=== PATIENT | female | born 1995 | race Caucasian/White ===

== ENCOUNTER 2023-02-17 09:56 | Outpatient (AMB) | payer OTHER, SELFPAY ==
[2023-02-17 09:59] VITALS: BP 116/64; PULSE 78; O2SAT 96; BMI 33.7
--- NOTE | 2023-02-17 09:59 | MHC.PC.OV ---
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 Will get pap again next yr. 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 SurgHx: None FHx: Mom: Arthritis. Dad: HLD, Moles. Brother: Healthy. pGF: DM. SocHx: Nonsmoker. EtOH 1-2 dr a week. No drugs. [facility] Medical History (Updated 02/17/23 @ 11:00 by Jericho Garcia) Anxiety Family History (Updated 02/17/23 @ 10:07 by Pam Barraza CMA) Paternal Grandfather Diabetes History of open heart surgery Father Mental health disorder Social History (Updated 02/17/23 @ 10:10 by Pam Barraza CMA) Household Members: Friend(s) Housing: House Alcohol intake: current Patient Tobacco Use Status: Never used Tobacco e-Cigarette/Vaping Use: Never Used Substance Use Type: Marijuana Special kan needs: No service: No Current occupational status: employed Current occupation: [employer] Cognitive needs: No Hearing needs: No Vision needs: No Questionnaire PHQ-9 Over the last 2 weeks, how often have you been bothered by any of the following problems? 1. Little interest or pleasure in doing things: not at all 2. Feeling down, depressed, or hopeless: not at all 3. Trouble falling or staying asleep, or sleeping too much: several days 4. Feeling tired or having little energy: not at all 5. Poor appetite or overeating: not at all 6. Feeling bad about yourself - or that you are a failure or have let yourself or your family down: not at all 7. Trouble concentrating on things, such as reading the newspaper or watching television: not at all 8. Moving or speaking so slowly that other people could have noticed. Or the opposite - being so fidgety or restless that you have been moving around a lot more than usual: not at all 9. Thoughts that you would be better off or of hurting yourself in some way: not at all Total score: 1 Source: Developed by Drs. Eriberto Dumont, Loulou Osman, Amair Flanagan and colleagues, with an educational nico from [employer]. Thrive Questionnaire I am a: Patient What is your living situation today?: I have a steady place to live Within the past 12 months, did the food you bought not last and you didn't have the money to get more?: Never true Do you have trouble paying for medicines?: No Do you have trouble getting transportation to medical appointments?: No Do you have trouble paying your heating and electricity bill?: No Do you have trouble taking care of your child, family member or friend?: No Do you have trouble with day-to-day activities such as bathing, preparing meals, shopping, managing finances, etc.?: No Are you currently unemployed and looking for a job?: No Are you interested in more education?: No AUDIT C Alcohol Use Questionnaire (AUDIT-C) 1. How often do you have a drink containing alcohol?: 2-3 times a week 2. How many drinks containing alcohol do you have on a typical day when you are drinking?: 1 or 2 3. How often do you have six or more drinks on one occasion?: Never Total Score: 3 DARNELL-7 AMB Questionnaire DARNELL-7 Date DARNELL - 7 assessed: 02/17/23 Feeling nervous, anxious, or on edge: 0 = Not at all Not being able to stop or control worryin = Not at all Worrying too much about different things: 1 = Several days Trouble relaxin = Not at all Being so restless that it is hard to sit still: 0 = Not at all Becoming easily annoyed or irritable: 0 = Not at all Feeling afraid as if something awful might happen: 0 = Not at all Total DARNELL-7 score (0-4 normal; 5-9 mild; 10-14 moderate; 15-21 severe): 1 Source: Developed by Drs. Eriberto Dumont, Loulou Osman, Aamir Flanagan and colleagues, with an educational nico from [employer]. Review of Systems Const Denies chills, Denies fatigue, Denies fever(s), Denies headache(s) and Denies weakness Eyes Denies change in vision ENT Denies dizziness, Denies headache(s), Denies hearing loss, Denies nasal congestion, Denies sinus pain, Denies sinus pressure and Denies sore throat Card Denies chest pain, Denies lightheadedness, Denies dyspnea and Denies other (palpitations) Resp Denies cough, Denies dyspnea and Denies wheezing GI Denies abdominal pain, Denies melena, Denies hematochezia, Denies change in bowel habits, Denies dyspepsia and Denies nausea Denies hematuria and Denies dysuria Musc Denies abnormal gait, Denies myalgias, Denies arthralgias, Denies numbness and Denies tingling Skin/Breast Denies rash, Denies unusual bruising and Denies wounds Neuro Denies abnormal gait, Denies dizziness, Denies headache(s), Denies memory loss, Denies numbness, Denies Sensory deficit (Neuro), Denies tingling and Denies weakness Psych Denies anxiety, Denies depression and Denies memory loss Endo Denies cold intolerance, Denies fatigue, Denies heat intolerance, Denies polydipsia and Denies polyuria Jimmy/Lymph Denies easy bleeding and Denies easy bruising Aller/Immun Denies wheezing Physical exam (Primary Care) Vital Signs: Last Vital Signs Pulse 78 02/17/23 09:59 BP 116/64 02/17/23 09:59 Pulse Ox 96 02/17/23 09:59 Oxygen Delivery Method Room Air 02/17/23 09:59 BMI result Body Mass Index 33.7 Tobacco/Smoking Status: Tobacco use Status Tobacco use date assessed 02/17/23 02/17/23 10:18 Patient Tobacco Use Status Never used Tobacco 02/17/23 10:18 e-Cigarette/Vaping Use Never Used 02/17/23 10:18 PHQ-9: PHQ-9 Score PHQ-9: Total score 1 02/17/23 10:35 Const General: no acute distress, well developed, alert and awake Nutritional Appearance: well nourished Orientation/consciousness: patient oriented x3 HENMT Head: Yes normocephalic and Yes atraumatic Ears: hearing grossly normal bilaterally and TM's normal bilaterally General nose exam: Normal external nose present and Normal nares present Mouth: Normal oral and palatal mucosa present and moist mucous membranes Teeth and gingiva: dentition normal Throat: Yes posterior oropharynx normal Eyes General: appearance normal, both eyes and all related structures Pupils: Equal, round and reactive pupils present and Pupil accommodation reflex normal EOM: EOMs intact bilaterally Neck Neck: Yes normal visual inspection, Yes no lymphadenopathy and Yes trachea midline Thyroid: Thyroid normal Carotids: no bruits Lymphatic: no lymphadenopathy noted Chest Chest palpation & inspection: normal inspection of the chest Resp Effort & Inspection: normal respiratory effort Auscultation: clear to auscultation bilaterally Cardio Rate: regular rate Rhythm: regular rhythm Heart sounds: S1 normal heart sound present, S2 normal heart sound present, no gallops, no murmurs and no rubs Bruits: no abdominal aortic bruits and no carotid bruits GI Palpation (GI): No Abdominal aortic bruit present, Soft to palpation, nontender, No hepatosplenomegaly present and No Rebound tenderness present Auscultation: normal bowel sounds General: Yes no CVA tenderness Back/Spine/Pelvis Back: no CVA tenderness Cervical Spine: cervical ROM normal and No Cervical spine tenderness Thoracic/Lumbar Spine: thoraco-lumbar ROM normal, No pain with thoraco-lumbar ROM, No thoracic spinal tenderness and No lumbar spinal tenderness Skin Lesions: no lesions Rashes: no rashes Trauma: no lacerations or abrasions Wounds: no wounds Nails: normal Neuro General: patient oriented x3 Cranial nerves: Yes Equal, round and reactive pupils present Cognition (Neuro): normal cognition Gait exam (Neuro): Normal gait present Motor exam (neuro): 5/5 motor strength present throughout Sensory Exam: No Sensory deficit (Neuro) Deep tendon reflexes (DTR's): Right patellar reflex intensity grade: 2+ and Left patellar reflex intensity grade: 2+ Extrem Other: Decreased ROM with flexion at the L knee, mild effusion, severe tenderness, peripatellar tenderness to palpation. Mildly positive patellar grind General: Yes normal to inspection and No edema Psych Appearance: grossly normal Affect: normal affect Attitude: cooperative Thought process: Normal thought process present Assessment and Plan Assessment & Plan (1) Adult general medical exam: Code(s): Z00.00 - Encounter for general adult medical examination without abnormal findings Plan: 27-year-old female presents as new patient and for CPE Numerous freckles but otherwise normal exam Encouraged healthy diet with active lifestyle and plenty of exercise (2) Freckles: Code(s): L81.2 - Freckles Plan: Numerous freckles and moles on face and upper body Referred to Dermatology (3) Screening for cervical cancer: Code(s): Z12.4 - Encounter for screening for malignant neoplasm of cervix Plan: History of abnormal Pap smear Followed by tapering machine operator (4) Abnormal Pap smear of cervix: Code(s): R87.619 - Unspecified abnormal cytological findings in specimens from cervix uteri Plan: History of abnormal Pap smears and HPV positive She is being screened annually by her tapering machine operator Follow-up with tapering machine operator as recommended (5) Numerous moles: Code(s): D22.9 - Melanocytic nevi, unspecified Orders: Orders Comprehensive [place]. Panel Fast Today Z00.00 - Encounter for general adult medical examination without abnormal findings Lipid Panel Today Z00.00 - Encounter for general adult medical examination without abnormal findings TSH reflex Free T4 Today Z00.00 - Encounter for general adult medical examination without abnormal findings Microalbumin, Random (w Creat) Today I10 - Essential (primary) hypertension Hepatitis B,C Profile Today Z11.3 - Encounter for screening for infections with a predominantly sexual mode of transmission HIV Ab/Ag Today Z11.3 - Encounter for screening for infections with a predominantly sexual mode of transmission Syphilis Screen Today Z11.3 - Encounter for screening for infections with a predominantly sexual mode of transmission UA and rflx microscopic Today Z00.00 - Encounter for general adult medical examination without abnormal findings CT NG by PCR Today Z11.3 - Encounter for screening for infections with a predominantly sexual mode of transmission Referrals Dermatology Referral D22.9 - Melanocytic nevi, unspecified, L81.2 - Freckles Coding Level of Care Code New Pt Prev Care 18-39yr([id number] Diagnoses Adult general medical exam Z00.00 Sabina L81.2 Screening for cervical cancer Z12.4 Abnormal Pap smear of cervix R87.619 Numerous moles D22.9
== END 2023-02-17 11:01 | disposition home or self-care (01) ==
PROVIDERS: PCP Family Medicine; Visit Provider Family Medicine
DX: Z00.00 Encounter for general adult medical examination without abnormal findings (principal); L81.2 Freckles; Z12.4 Encounter for screening for malignant neoplasm of cervix; R87.619 Unspecified abnormal cytological findings in specimens from cervix uteri; D22.9 Melanocytic nevi, unspecified
CPT/HCPCS: 99385

== ENCOUNTER 2023-03-03 08:09 | Outpatient (REF) | payer OTHER, SELFPAY ==
[2023-03-03 12:37] LABS: Appearance Urine Clear; Color Urine Yellow; Glucose Urine UA Negative (Negative); Leukocyte Esterase Urine Negative (Negative); Nitrite Urine Negative (Negative); PH 5.5 (5.0-9.0); Urine Blood Negative (Negative); Urine Ketones Negative (Negative); Urine Protein Negative (Neg-Trace)
[2023-03-03 13:15] LABS: Creatinine Urine 202.27 mg/dL; Microalbum/Creatinine Ratio Ur 2.4 ug/mg cr (<30)
== END 2023-03-03 08:10 | disposition home or self-care (01) ==
LOC: HO.WFDLDS 08:09
PROVIDERS: Visit Provider Family Medicine
DX: Z00.00 Encounter for general adult medical examination without abnormal findings (principal); I10 Essential (primary) hypertension
CPT/HCPCS: 81003; 82043; 82570; 86704; 86706; 87340

== ENCOUNTER 2023-03-04 08:06 | Outpatient (REF) | payer OTHER, SELFPAY ==
[2023-03-04 12:33] LABS: Alanine Aminotransferase 25 U/L (0-31); Albumin Level 4.4 g/dL (3.5-5.0); Alkaline Phosphatase 69 U/L (39-117); Anion Gap 13 (12-20); Aspartate Amino Transferase 20 U/L (5-31); Bilirubin Total 0.6 mg/dL (0.0-1.0); Blood Urea Nitrogen 11 mg/dL (9-16); Calcium 9.8 mg/dL (8.4-10.2); Carbon Dioxide 24 mmol/L (22-29); Chloride 106 mmol/L (96-108); Cholesterol 204 mg/dL (<200); Estimated Glomerular Filt Rate > 60; Glucose Fasting 81 mg/dL (60-99); HDL Cholesterol 53 mg/dL (>40); LDL Cholesterol Calculated 132 mg/dL (<100); Potassium 4.6 mmol/L (3.3-5.1); Sodium 138 mmol/L (135-145); Triglycerides 95 mg/dL (<150)
[2023-03-04 12:35] LABS: Syphilis Screen Nonreactive (Nonreactive)
[2023-03-04 12:36] LABS: TSH reflex Free T4 2.53 uIU/mL (0.32-4.0)
[2023-03-05 09:33] LABS: HBS Num1 1.48 mIU/mL (0-7.99); HBc Num1 0.11 S/CO (0.00-0.79); HBsAGNum1 0.41 S/CO (0.00-0.99); HIV AB/AG Nonreactive (Nonreactive); HIV Num 1 0.06 S/CO (0.00-0.99); Hepatitis B Core Antibody Nonreactive (Nonreactive); Hepatitis B Surface Antigen Negative (Negative); ~HepC Num1 0.12 S/CO (0.00-0.79); ~Hepatitis B Surface Antibody NONREACTIVE (Nonreactive); ~Hepatitis C Antibody Nonreactive (Nonreactive)
== END 2023-03-04 08:07 | disposition home or self-care (01) ==
LOC: HO.WFDLDS 08:06
PROVIDERS: Visit Provider Family Medicine
DX: Z00.00 Encounter for general adult medical examination without abnormal findings (principal); Z20.2 Contact with and (suspected) exposure to infections with a predominantly sexual mode of transmission
CPT/HCPCS: 36415; 80053; 80061; 84443; 86704; 86706; 86780; 86803; 87340; 87389

== ENCOUNTER 2023-03-15 13:47 | Outpatient (AMB) | payer OTHER, SELFPAY ==
--- NOTE | 2023-03-15 13:43 | MHC.PC.OV ---
Intake Visit Reasons: f/u CPE-labs Intake Note: Patient is following up on her labs today. Allergies No Known Allergies Allergy (Verified 03/15/23 13:44) Tobacco use date assessed: 03/15/23 Dental Screening Did you have a dental visit in the last 12 months?: Yes Did you have a dental problem in the last 6 months where you did not have access to dental care?: No Was dental information given to patient?: Patient has dentist HPI f/u CPE-labs HPI Details Patient presents to follow-up labs. TC and LDL cholesterol are mildly elevated. Her HDL ratios are good however. She also notes that she got her dermatology appointment and she will ask them to forward a note when available. She feels well. No new complaints. [facility] Medical History Anxiety Family History Paternal Grandfather Diabetes History of open heart surgery Father Mental health disorder Social History Household Members: Friend(s) Housing: House Alcohol intake: current Patient Tobacco Use Status: Never used Tobacco e-Cigarette/Vaping Use: Never Used Substance Use Type: Marijuana Special kan needs: No service: No Current occupational status: employed Current occupation: [employer] Cognitive needs: No Hearing needs: No Vision needs: No Questionnaire DARNELL-7 AMB Questionnaire DARNELL-7 Date DARNELL - 7 assessed: 02/17/23 Source: Developed by Drs. Eriberto Dumont, Loulou Osman, Aamir Flanagan and colleagues, with an educational nico from [employer]. Review of Systems Const Denies chills, Denies fatigue, Denies fever(s), Denies headache(s) and Denies weakness ENT Denies dizziness and Denies headache(s) Card Denies chest pain, Denies lightheadedness, Denies dyspnea and Denies other (Palpitations) Resp Denies cough, Denies dyspnea, Denies wheezing and Denies other ( shortness of breath) Musc Denies numbness and Denies tingling Neuro Denies dizziness, Denies headache(s), Denies numbness, Denies tingling, Denies paresthesias and Denies weakness Psych Denies anxiety and Denies depression Endo Denies fatigue Aller/Immun Denies wheezing Physical exam (Primary Care) Tobacco/Smoking Status: Tobacco use Status Tobacco use date assessed 03/15/23 03/15/23 13:45 Patient Tobacco Use Status Never used Tobacco 03/15/23 13:45 e-Cigarette/Vaping Use Never Used 03/15/23 13:45 Const Other: Telemedicine encounter. Audio only. No exam. Telehealth Telehealth Location of provider rendering services: practice address Location of patient: address on file Patient Identification confirmed using: Name, : Yes Telehealth method: voice only Patient verbally consented to treatment: Yes Patient verbally consented to billing insurance company: Yes Patient informed of any privacy concerns related to visit: Yes Minutes spent on Phone/Video with Pt.: 6 Assessment and Plan Assessment & Plan (1) Elevated LDL cholesterol level: Code(s): E78.00 - Pure hypercholesterolemia, unspecified Plan: Mildly elevated LDL cholesterol. Her HDL ratios are good however. Encouraged a diet low in saturated fats and cholesterol Coding Level of Care Code Tele Est Pt Level 2 (85719) Diagnoses Elevated LDL cholesterol level E78.00
== END 2023-03-15 16:50 ==
LOC: HO.HMGFM 13:47
PROVIDERS: PCP Family Medicine; Visit Provider Family Medicine
DX: E78.00 Pure hypercholesterolemia, unspecified (principal)
CPT/HCPCS: 99212

== ENCOUNTER 2024-10-04 09:04 | Outpatient (AMB) | payer BC, SELFPAY ==
[2024-10-04 09:12] VITALS: BP 110/68; PULSE 88; RESP 14; TEMP 36.5; O2SAT 98; BMI 35.2
--- NOTE | 2024-10-04 09:12 | A.OFFPC_ITS ---
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 Required: No Is last menstrual period known: Yes Last menstrual period: 09/24/24 Post menopausal: No Patient : No Allergies No Known Allergies Allergy (Verified 10/04/24 09:15) Medication List - Last Reconciled 10/04/24 by Macario Ortega MD No Known Home Meds Tobacco use date assessed: 10/04/24 Dental Screening Dental Screen Date: 10/04/24 Did you have a dental visit in the last 12 months?: Yes Did you have a dental problem in the last 6 months where you did not have access to dental care?: No Was dental information given to patient?: No HPI CPE with follow-up labs and health maintenance HPI Details 29 y/o female presents for a CPE with f/ u labs and health maint. No recent labs to review. [facility] Medical History Anxiety Family History Paternal Grandfather Diabetes History of open heart surgery Father Mental health disorder Social History Household Members: Friend(s) Housing: House Alcohol intake: current Patient Tobacco Use Status: Never used Tobacco e-Cigarette/Vaping Use: Never Used Substance Use Type: Marijuana Special kan needs: No service: No Current occupational status: employed Current occupation: [employer] Cognitive needs: No Hearing needs: No Vision needs: No Female Reproductive History Menstrual Date of last menstrual period: 09/24/24 Questionnaire PHQ-9 Over the last 2 weeks, how often have you been bothered by any of the following problems? 1. Little interest or pleasure in doing things: not at all 2. Feeling down, depressed, or hopeless: not at all 3. Trouble falling or staying asleep, or sleeping too much: not at all 4. Feeling tired or having little energy: not at all 5. Poor appetite or overeating: not at all 6. Feeling bad about yourself - or that you are a failure or have let yourself or your family down: not at all 7. Trouble concentrating on things, such as reading the newspaper or watching television: not at all 8. Moving or speaking so slowly that other people could have noticed. Or the opposite - being so fidgety or restless that you have been moving around a lot more than usual: not at all 9. Thoughts that you would be better off or of hurting yourself in some way: not at all Total score: 0 Depression Screening Interpretation: Negative Depression Screening Done: Yes 89612 - PHQ-9 Billing: Yes Source: Developed by Drs. Eriberto Dumont, Loulou Osman, Aamir Flanagan and colleagues, with an educational nico from [employer]. Thrive Questionnaire Date Thrive assessed: 10/04/24 I am a: Patient What is your living situation today?: I have a steady place to live Within the past 12 months, did the food you bought not last and you didn't have the money to get more?: Never true Within the past 12 months, did you worry whether your food would run out before you got money to buy more?: Never true Do you have trouble paying for medicines?: No Do you have trouble getting transportation to medical appointments?: No Do you have trouble paying your heating and electricity bill?: No Do you have trouble taking care of your child, family member or friend?: No Do you have trouble with day-to-day activities such as bathing, preparing meals, shopping, managing finances, etc.?: No Are you currently unemployed and looking for a job?: No Are you interested in more education?: No Please select the resources that you would like help with: None Currently or been in a relationship where the following occur: No concerns reported THRIVE Score: 0 AUDIT C Alcohol Use Questionnaire (AUDIT-C) 1. How often do you have a drink containing alcohol?: 2-4 times a month 2. How many drinks containing alcohol do you have on a typical day when you are drinking?: 1 or 2 3. How often do you have six or more drinks on one occasion?: Never Total Score: 2 Score Reviewed/Action Taken: Yes DARNELL-7 AMB Questionnaire DARNELL-7 Date DARNELL - 7 assessed: 10/04/24 Feeling nervous, anxious, or on edge: 0 = Not at all Not being able to stop or control worryin = Not at all Worrying too much about different things: 0 = Not at all Trouble relaxin = Not at all Being so restless that it is hard to sit still: 0 = Not at all Becoming easily annoyed or irritable: 0 = Not at all Feeling afraid as if something awful might happen: 0 = Not at all Total DARNELL-7 score (0-4 normal; 5-9 mild; 10-14 moderate; 15-21 severe): 0 Source: Developed by Drs. Eriberto Dumont, Loulou Osman, Aamir Flanagan and colleagues, with an educational nico from [employer]. DARNELL-7 Assessment Billing DARNELL-7 Assessment Tool: DARNELL-7 Assessment 05123 Review of Systems Const Denies chills, Denies fatigue, Denies fever(s), Denies headache(s) and Denies weakness Eyes Denies change in vision ENT Denies dizziness, Denies headache(s), Denies hearing loss, Denies nasal congestion, Denies sinus pain, Denies sinus pressure and Denies sore throat Card Denies chest pain, Denies lightheadedness, Denies dyspnea and Denies other (palpitations) Resp Denies cough, Denies dyspnea and Denies wheezing GI Denies abdominal pain, Denies melena, Denies hematochezia, Denies change in bowel habits, Denies dyspepsia and Denies nausea Denies hematuria and Denies dysuria Musc Denies abnormal gait, Denies myalgias, Denies arthralgias, Denies numbness and Denies tingling Skin/Breast Denies rash, Denies unusual bruising and Denies wounds Neuro Denies abnormal gait, Denies dizziness, Denies headache(s), Denies memory loss, Denies numbness, Denies Sensory deficit (Neuro), Denies tingling and Denies weakness Psych Denies anxiety, Denies depression and Denies memory loss Endo Denies cold intolerance, Denies fatigue, Denies heat intolerance, Denies polydipsia and Denies polyuria Jimmy/Lymph Denies easy bleeding and Denies easy bruising Aller/Immun Denies wheezing Physical exam (Primary Care) Vital Signs: Last Vital Signs Temp 97.7 F 10/04/24 09:12 Pulse 88 10/04/24 09:12 Resp 14 10/04/24 09:12 BP 110/68 10/04/24 09:12 Pulse Ox 98 10/04/24 09:12 Oxygen Delivery Method Room Air 10/04/24 09:12 BMI result Body Mass Index 35.2 Tobacco/Smoking Status: Tobacco use Status Tobacco use date assessed 10/04/24 10/04/24 09:16 Patient Tobacco Use Status Never used Tobacco 10/04/24 09:16 e-Cigarette/Vaping Use Never Used 10/04/24 09:16 PHQ-9: PHQ-9 Score PHQ-9: Total score 0 10/04/24 09:49 Depression Screening Interpretation: Negative Thrive Assessment: Date of Thrive Assessment Date Thrive assessed 10/04/24 10/04/24 09:16 Currently or been in a relationship where the following occur: No concerns reported Const General: no acute distress, well developed, alert and awake Nutritional Appearance: well nourished and obese Orientation/consciousness: patient oriented x3 HENMT Head: Yes normocephalic and Yes atraumatic Ears: hearing grossly normal bilaterally and TM's normal bilaterally General nose exam: Normal external nose present and Normal nares present Mouth: Normal oral and palatal mucosa present and moist mucous membranes Teeth and gingiva: dentition normal Throat: Yes posterior oropharynx normal Eyes General: appearance normal, both eyes and all related structures Pupils: Equal, round and reactive pupils present and Pupil accommodation reflex normal EOM: EOMs intact bilaterally Neck Neck: Yes normal visual inspection, Yes no lymphadenopathy and Yes trachea midline Thyroid: Thyroid normal Carotids: no bruits Lymphatic: no lymphadenopathy noted Chest Chest palpation & inspection: normal inspection of the chest Resp Effort & Inspection: normal respiratory effort Auscultation: clear to auscultation bilaterally Cardio Rate: regular rate Rhythm: regular rhythm Heart sounds: S1 normal heart sound present, S2 normal heart sound present, no gallops, no murmurs and no rubs Bruits: no abdominal aortic bruits and no carotid bruits GI Palpation (GI): No Abdominal aortic bruit present, Soft to palpation, nontender, No hepatosplenomegaly present and No Rebound tenderness present Auscultation: normal bowel sounds General: Yes no CVA tenderness Back/Spine/Pelvis Back: no CVA tenderness Cervical Spine: cervical ROM normal and No Cervical spine tenderness Thoracic/Lumbar Spine: thoraco-lumbar ROM normal, No pain with thoraco-lumbar ROM, No thoracic spinal tenderness and No lumbar spinal tenderness Skin Lesions: no lesions Rashes: no rashes Trauma: no lacerations or abrasions Wounds: no wounds Nails: normal Neuro General: patient oriented x3 Cranial nerves: Yes Equal, round and reactive pupils present Cognition (Neuro): normal cognition Gait exam (Neuro): Normal gait present Motor exam (neuro): 5/5 motor strength present throughout Sensory Exam: No Sensory deficit (Neuro) Deep tendon reflexes (DTR's): Right patellar reflex intensity grade: 2+ and Left patellar reflex intensity grade: 2+ Extrem General: Yes normal to inspection and No edema Psych Appearance: grossly normal Affect: normal affect Attitude: cooperative Thought process: Normal thought process present Coding Level of Care Code Est Pt Level 3 (89136) Est Pt Prev Care 18-39y(82037) Diagnoses Adult general medical exam Z00.00 Obesity E66.9 Elevated LDL cholesterol level E78.00 Screening for cervical cancer Z12.4 Additional Codes DARNELL-7 Assessment Billing - DARNELL-7 Assessment Tool: DARNELL-7 Assessment 30130 ([id number]) PHQ-9 - 99943 - PHQ-9 Billing: Yes ([id number]) Assessment & Plan Assessment & Plan (1) Adult general medical exam: Code(s): Z00.00 - Encounter for general adult medical examination without abnormal findings Category: Medical Plan: 29-year-old?female?presents?for?complete?physical?exam Exam?within?normal?limits Encouraged?healthy?diet?with?active?lifestyle?and?plenty?of?exercise (2) Obesity: Code(s): E66.9 - Obesity, unspecified Category: Medical Plan: Patient?wanted?to?discuss?obesity. Currently?eating?a?healthy?diet?and says?she?exercises?frequently. Encouraged?diet?exercise?and?weight?loss Patient?inquires?about?GLP?1?medications?and?I?advised?her?to?talk?to?her?insura nce?company?about?coverage. (3) Elevated LDL cholesterol level: Code(s): E78.00 - Pure hypercholesterolemia, unspecified Category: Medical Plan: Patient?has?lab?work?ordered?and?we?will?follow-up?on?this?in?about?a?month (4) Screening for cervical cancer: Code(s): Z12.4 - Encounter for screening for malignant neoplasm of cervix Category: Medical Plan: She?has?an?upcoming?appointment?with?her?chronograph operator Orders: Orders Comprehensive [place]. Panel Fast Today Z00.00 - Encounter for general adult medical examination without abnormal findings Complete Blood Count Auto Diff Today Z00.00 - Encounter for general adult medical examination without abnormal findings Microalbumin, Random (w Creat) Today I10 - Essential (primary) hypertension UA CC w/rflx Micro + Cult Today Z00.00 - Encounter for general adult medical examination without abnormal findings Lipid Panel Today Z00.00 - Encounter for general adult medical examination without abnormal findings TSH reflex Free T4 Today Z00.00 - Encounter for general adult medical examination without abnormal findings
== END 2024-10-04 10:00 | disposition home or self-care (01) ==
LOC: HO.HMCFM 09:05
PROVIDERS: PCP Family Medicine; Visit Provider Family Medicine
DX: Z00.00 Encounter for general adult medical examination without abnormal findings (principal); E66.9 Obesity, unspecified; E78.00 Pure hypercholesterolemia, unspecified; Z68.35 Body mass index [BMI] 35.0-35.9, adult

== ENCOUNTER → 2024-10-04 09:04 | Outpatient (BNVA) | payer BC, SELFPAY | PROVIDERS: PCP Family Medicine; Visit Provider Family Medicine | DX: Z00.00 Encounter for general adult medical examination without abnormal findings (principal); E66.9 Obesity, unspecified; Z68.35 Body mass index [BMI] 35.0-35.9, adult; E78.00 Pure hypercholesterolemia, unspecified | CPT/HCPCS: 96127 ==

== ENCOUNTER 2024-10-31 08:35 | Outpatient (REF) | payer BC, SELFPAY ==
[2024-10-31 11:22] LABS: MANUAL DIFF FLAG NO
[2024-10-31 11:28] LABS: Basophils Absolute Auto 0.1 X10*3/uL (0.0-0.2); Basophils Percent Auto 1.2 % (0-2); Eosinophils Absolute Auto 0.3 X10*3/uL (0.0-0.4); Eosinophils Percent Auto 5.8 % (0-4); Hematocrit 42.8 % (37.0-47.0); Hemoglobin 13.9 g/dl (12.0-16.0); Imm Gran Abs Auto 0.01 X10*3/uL (0.00-0.03); Imm Gran Pct Auto 0.2 % (0.0-0.4); Lymphocytes Absolute Auto 1.5 X10*3/uL (1.2-4.9); Lymphocytes Percent Auto 28.4 % (20-40); Mean Corpuscular HGB Conc 32.5 g/dl (31.0-35.0); Mean Corpuscular Hemoglobin 27.7 pg (27.0-33.0); Mean Corpuscular Volume 85.4 fL (80.0-98.0); Mean Platelet Volume 10.5 fL (9.4-12.3); Monocytes Absolute Auto 0.5 X10*3/uL (0.1-1.2); Monocytes Percent Auto 9.3 % (2-11); Neutrophils Absolute Auto 2.9 x10*3/uL (2.0-8.3); Neutrophils Percent Auto 55.1 % (45-73); Platelet Count 320 X10*3/uL (160-400); Red Blood Count 5.01 X10*6/uL (4.20-5.50); Red Cell Distribution Width 13.8 % (11.0-16.0); White Blood Count 5.2 X10*3/uL (4.8-10.8)
[2024-10-31 11:30] LABS: Appearance Urine Clear; Color Urine Yellow; Glucose Urine UA Negative (Negative); Leukocyte Esterase Urine Negative (Negative); Nitrite Urine Negative (Negative); PH 6.5 (5.0-9.0); Urine Blood Negative (Negative); Urine Ketones Negative (Negative); Urine Protein Negative (Neg-Trace)
[2024-10-31 12:19] LABS: Alanine Aminotransferase 28 U/L (0-31); Albumin Level 4.4 g/dL (3.5-5.0); Anion Gap 11 (12-20); Aspartate Amino Transferase 32 U/L (5-31); Bilirubin Total 0.4 mg/dL (0.0-1.0); Blood Urea Nitrogen 11 mg/dL (9-16); Calcium 9.5 mg/dL (8.4-10.2); Carbon Dioxide 26 mmol/L (22-29); Chloride 106 mmol/L (96-108); Cholesterol 186 mg/dL (<200); Estimated Glomerular Filt Rate > 60; Glucose Fasting 86 mg/dL (60-99); HDL Cholesterol 53 mg/dL (>40); LDL Cholesterol Calculated 114 mg/dL (<100); Potassium 4.2 mmol/L (3.3-5.1); Sodium 139 mmol/L (135-145); TSH reflex Free T4 1.79 uIU/mL (0.32-4.0); Total Protein 7.6 g/dL (6.5-8.0); Triglycerides 99 mg/dL (<150)
[2024-10-31 12:34] LABS: Microalbumin Urine < 5.0 mg/L
[2024-10-31 12:42] LABS: Alkaline Phosphatase 76 U/L (39-117)
== END 2024-10-31 08:36 | disposition home or self-care (01) ==
LOC: HO.WFDLDS 08:35
PROVIDERS: Visit Provider Family Medicine
DX: Z00.00 Encounter for general adult medical examination without abnormal findings (principal); I10 Essential (primary) hypertension
CPT/HCPCS: 36415; 80053; 80061; 81003; 82043; 82570; 84443; 85025

== ENCOUNTER 2024-11-06 14:12 | Outpatient (AMB) | payer BC, SELFPAY ==
--- NOTE | 2024-11-06 14:07 | A.OFFPC_ITS ---
Intake Visit Reasons: f/u CPE-labs via telemedicine Or Nurse Manager Required: No Allergies No Known Allergies Allergy (Verified 11/06/24 14:08) Medication List - Last Reconciled 11/06/24 by Macario Ortega MD No Known Home Meds Tobacco use date assessed: 10/04/24 Dental Screening Dental Screen Date: 10/04/24 HPI f/u CPE-labs via telemedicine HPI Details 29 y/o female presents to f/u labs via t elemed. Labs drawn 10/31/24. Reviewed labs with pt. Elevated AST of 32. ALT 28. Triglycerides 99. TC 186. LDL worsened from 132 to 114. HDL 53. TSH 1.79. PFSH Medical History Anxiety Family History Paternal Grandfather Diabetes History of open heart surgery Father Mental health disorder Social History Household Members: Friend(s) Housing: House Alcohol intake: current Patient Tobacco Use Status: Never used Tobacco e-Cigarette/Vaping Use: Never Used Substance Use Type: Marijuana Special kan needs: No service: No Current occupational status: employed Current occupation: [employer] Cognitive needs: No Hearing needs: No Vision needs: No Questionnaire Thrive Questionnaire Date Thrive assessed: 10/01/24 I am a: Patient What is your living situation today?: I have a steady place to live Within the past 12 months, did the food you bought not last and you didn't have the money to get more?: Never true Within the past 12 months, did you worry whether your food would run out before you got money to buy more?: Never true Do you have trouble paying for medicines?: No Do you have trouble getting transportation to medical appointments?: No Do you have trouble paying your heating and electricity bill?: No Do you have trouble taking care of your child, family member or friend?: No Do you have trouble with day-to-day activities such as bathing, preparing meals, shopping, managing finances, etc.?: No Are you currently unemployed and looking for a job?: No Are you interested in more education?: No Please select the resources that you would like help with: None Currently or been in a relationship where the following occur: No concerns reported THRIVE Score: 0 DARNELL-7 AMB Questionnaire DARNELL-7 Date DARNELL - 7 assessed: 10/04/24 Source: Developed by Drs. Eriberto Dumont, Loulou Osman, Aamir Flanagan and colleagues, with an educational nico from [employer]. Review of Systems Const Denies chills, Denies fatigue, Denies fever(s), Denies headache(s) and Denies weakness ENT Denies dizziness and Denies headache(s) Card Denies dyspnea Resp Denies cough, Denies dyspnea, Denies wheezing and Denies other (shortness of breath) Musc Denies numbness and Denies tingling Neuro Denies dizziness, Denies headache(s), Denies numbness, Denies tingling and Denies weakness Psych Denies anxiety and Denies depression Endo Denies fatigue Aller/Immun Denies wheezing Physical exam (Primary Care) Tobacco/Smoking Status: Tobacco use Status Tobacco use date assessed 10/04/24 11/06/24 14:08 Patient Tobacco Use Status Never used Tobacco 11/06/24 14:08 e-Cigarette/Vaping Use Never Used 11/06/24 14:08 Thrive Assessment: Date of Thrive Assessment Date Thrive assessed 10/01/24 11/06/24 14:08 Currently or been in a relationship where the following occur: No concerns reported Telehealth Telehealth Telehealth Platform: Telephone Location of provider rendering services: practice address Location of patient: address on file Patient Identification confirmed using: Name, : Yes Telehealth method: voice only Patient verbally consented to treatment: Yes Patient verbally consented to billing insurance company: Yes Patient informed of any privacy concerns related to visit: Yes Minutes spent on Phone/Video with Pt.: 9 Coding Level of Care Code Tele Est Pt Level 2 (81655) Diagnoses Elevated LDL cholesterol level E78.00 Elevated liver enzymes R74.8 Obesity E66.9 Assessment & Plan Assessment & Plan (1) Elevated LDL cholesterol level: Code(s): E78.00 - Pure hypercholesterolemia, unspecified Category: Medical Plan: Elevated?LDL?cholesterol Encouraged?lifestyle?changes We?can?recheck?in?about?3?months?and?follow-up (2) Elevated liver enzymes: Code(s): R74.8 - Abnormal levels of other serum enzymes Category: Medical Plan: Mildly?elevated?AST Recheck?in?a?few?months (3) Obesity: Code(s): E66.9 - Obesity, unspecified Category: Medical Plan: Encouraged?weight?loss Will?try?sending?a?script?for? Ozempic.??We?discussed?that?we?can?try?1?PA?but?if?this?does?not?go?through?he?s hould?lifestyle?changes. Orders: Orders Lipid Panel Today E78.00 - Pure hypercholesterolemia, unspecified, Z00.00 - Encounter for general adult medical examination without abnormal findings Comprehensive [place]. Panel Fast Today E78.00 - Pure hypercholesterolemia, unspecified, Z00.00 - Encounter for general adult medical examination without abnormal findings UA CC w/rflx Micro + Cult Today E66.9 - Obesity, unspecified, Z00.00 - Encounter for general adult medical examination without abnormal findings Microalbumin, Random (w Creat) Today E66.9 - Obesity, unspecified, I10 - Essential (primary) hypertension Medications: New semaglutide (Ozempic) for 4 weeks 0.25 mg (0.368 mL) subcut QWEEK 28 days 1.472 mL 3RF E66.9 - Obesity, unspecified
== END 2024-11-06 17:05 | disposition home or self-care (01) ==
LOC: HO.HMCFM 14:13
PROVIDERS: PCP Family Medicine; Visit Provider Family Medicine
DX: E78.00 Pure hypercholesterolemia, unspecified (principal); R74.8 Abnormal levels of other serum enzymes; E66.9 Obesity, unspecified

== ENCOUNTER → 2024-11-06 14:12 | Outpatient (BNVA) | payer BC, SELFPAY | PROVIDERS: PCP Family Medicine; Visit Provider Family Medicine | DX: Z13.89 Encounter for screening for other disorder (principal) ==

== ENCOUNTER 2025-02-07 08:42 | Outpatient (REF) | payer BC, SELFPAY ==
--- OUTSIDE RECORDS SUMMARY | 2025-02-07 09:24 | XMS_ITS | Clinical Summary ---
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 Recommend repeat pap 09/2022 LGSIL - Colposcopy 11/2022: No visible ectocervical lesions, ECC: LGSIL 2023: NSIL, no HPV tested 10/2024: cotesting: (if normal then can return to normal screening), NSIL, HPV 35/39/68-POS Colposcopy: Neg biopsy Assessment & Plan (10/05/2022 8:17 AM EDT): Pap history reviewed; if pap nl, plan cotesting in 3 years. 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); LGSIL on Pap smear of cervix from Last 3 Months Immunizations Immunization Administration Dates Next Due COVID-19 (Pre-10/23) Moderna Vaccine, mRNA, PF 0 09/16/2020 Family History Medical History Relation Comments Cancer Maternal Aunt ?Maybe breast, n ot sure Lung cancer Maternal Grandfather CV disease Paternal Grandfather Diabetes mellitus Paternal Grandfather Relation Status Comments Father Alive Maternal Aunt Maternal Grandfather Maternal Grandmother Alive Mother Alive Paternal Grandfather Social History Tobacco Use Types Packs/Day Years Used Date Smoking Tobacco: Never Smokeless Tobacco: Never Tobacco Cessation:Counseling Given: Not Answered Alcohol Use Standard Drinks/Week Comments Yes 0 (1 standard drink = 0.6 oz pur e alcohol) rare Education Answer Date Recorded Are you interested in more education? Not on karely e 10/16/2022 Are you concerned about learning? Not on file 10/16/2022 No 10/16/2022 No 10/16/2022 Digital Access Answer Date Recorded No 11/13/2022 No 11/13/2022 Reliable internet access at home? Not on file 11/13/2022 Device with a working camera? Not on file Comments No Sex and Gender Information Value Date Recorded Sex Assigned at Not on file Legal Sex Female 8:53 PM EDT Gender Identity Not on file Sexual Orientation Not on file Occupation Industry Job Start Date Job End Date [employer] Not on file Not on file Not on file Last Filed Vital Signs Vital Sign Reading Time Taken Comments Blood Pressure 116/74 10/17/2024 8:02 AM EDT Pulse - - Temperature - - Respiratory Rate - - Oxygen Saturation - - Inhaled Oxygen Concentration - - Weight 99.3 kg (219 lb) 10/17/2024 8:02 AM EDT Height 174 cm (5' 8.5 ) 10/17/2024 8:02 AM EDT Body Mass Index 32.81 10/17/2024 8:02 AM EDT Plan of Treatment Health Maintenance Due Date Last Done Comments Adult Td,Tdap Booster 1994 DEPRESSION SCREENING 2006 HEPATITIS C SCREENING 2012 COVID-19 VACCINE ( season) 2024 06/16/2021, 10/15/2020, 09/16/2020 PAP SMEAR 10/17/2025 10/17/2024, 09/20, 10/05/2022, Additional history exists HIV ONE-TIME SCREENING (18-65 YEARS) Completed 10/13/2023 SMOKING STATUS SCREENING (Once After 26 Yrs) Completed 10/17/2024 HEPATITIS A VACCINES Aged Out No long er eligible based on patient's age to complete this topic HIB VACCINES Aged Out No longer eligi ble based on patient's age to complete this topic MENINGOCOCCAL VACCINES (ACWY) Aged Out No longer eligible based on patient's age to complete this topic MENINGOCOCCAL VACCINES (B) Aged Out N o longer eligible based on patient's age to complete this topic PNEUMOCOCCAL VACCINES (0-49 years) Aged Out No longer eligible based on patient's age to complete this topic Medical Devices Not on file Procedures Procedure Name Priority Date/Time Associated Diagnosis Comments POCT URINE HCG Routine 11/17/2024 9:07 AM EDT High risk HPV infection ANATOMIC PATHOLOGY Routine 11/17/2024 12 :00 AM EDT PAP TEST Routine 10/17/2024 12:00 AM EDT from Last 3 Months or Most Recently Relevant to Health Maintenance Results * Poct Urine HCG (11/17/2024 9:07 AM EDT) HCG, urine Negative, Internal QCs acceptable Negative [facility] Other 11/17/2024 9:07 AM EDT Rey Avelar MD POINT OF CARE TEST ORDERABLES Fi nal Result Performing Organization Address City/State/[facility] Co de Phone Number [address] [address], [facility] * Anatomic Pathology (11/17/2024 12:00 AM EDT) 11/17/2024 11/17/2024 3:1 3 PM EDT Narrative SEE NARRATIVE - 11/20/2024 4:00 PM EDT [address] [address] Hat Lining Paster: Adonis Tellez MD Surgical Pathology Report FINAL PATHOLOGIC DIAGNOSIS: ENDOCERVICAL CURETTINGS: Squamous epithelium, negative for dysplasia. Benign endocervical glands. Electronically Signed Out By Nina Hurtado MD By his/her signature above, the pathologist listed as making the Final Diagnosis certifies that he/she has personally reviewed this case and confirmed or corrected the diagnosis. CLINICAL HISTORY High risk HPV infection (B97.7) LGSIL on Pap smear of cervix (R87.612) SPECIMENS SUBMITTED: A: ENDOCERVICAL CURETTINGS GROSS DESCRIPTION ENDOCERVICAL CURETTINGS: Received in formalin is a 0.7 x 0.6 x 0.3 cm aggregate of blood-tinged mucus admixed with irregular welsh-pink soft tissue which is submitted in toto in a single cassette labeled A1. Grossed by: KELECHI Limon PA(ASCP) [id number] 11/17/2024 Grossing Staff: [id number] Patient Name: KARENA ALBERTO : 1995 (Age: 29) Sex: F Institution: [facility] Location: [facility] Date of Operation: 11/17/2024 Date of Reported: 11/20/2024 16:00 Results To: Rey Ortega MD Rey Avelar MD PATHOLOGY ORDERABLES Final Resul t SEE NARRATIVE * Pap Test (10/17/2024 12:00 AM EDT) 10/17/2024 10/18/2024 9:0 1 AM EDT Narrative SEE NARRATIVE - 10/23/2024 11:18 AM EDT [address] [address] Hat Lining Paster: Adonis Tellez MD PERIODONTAL ASSISTANT Cytology Report FINAL DIAGNOSIS A. PAP SMEAR (THIN PREP) CE: SPECIMEN ADEQUACY: Satisfactory for evaluation; transformation zone present. INTERPRETATION: NEGATIVE FOR INTRAEPITHELIAL LESION OR MALIGNANCY. This specimen was analyzed by the automated ThinPrep Imaging System ([employer].) and manually rescreened by a shell freezing machine operator and/or pathologist. Electronically Signed Out By: ALEX Finn(ASCP) ALEX Suarez(ASCP) The Pap test is a screening test primarily for squamous cancers and precursors and has associated false-negative and false-positive results. New technologies such as liquid-based preparations may decrease but will not eliminate all false-negative results. Regular sampling and follow-up of unexplained clinical signs and symptoms are recommended to minimize false negative results. PROCEDURES/ADDENDA HPV Testing (Requested) Ordered Date: 10/18/2024 A. PAP SMEAR (THIN PREP) CE: High-risk HPV Panel w/ extended genotyping POS HPV 16-NEG HPV 18-NEG HPV 45-NEG HPV 33/58-NEG HPV 31-NEG HPV 56/59/66-NEG HPV 51-NEG HPV 52-NEG HPV 35/39/68-POS Performed by real-time polymerase chain reaction (PCR) at [address] using the FDA-approved [employer] Onclarity HPV Assay with extended genotyping. Uses of the assay in scenarios other than those approved by the FDA should be considered off-label use. The accuracy and precision of this test for all other off-label specimen sources has been verified in the Cytopathology Laboratory of the [facility] and has not been cleared or approved by the U.S. Food and Drug Administration. Clinical correlation is advised. The assay assesses the E6/E7 DNA target and utilizes human beta globin as an internal control. Cytology and HPV testing are screening assays and should not be used as the sole means of detecting cancer. False-positives and false-negatives can occur. CLINICAL HISTORY Date of Last Menstrual Period: Not Provided Menstrual History: Unknown Contraceptive History: BCPs Other Clinical Conditions: Diagnostic Pap Abnormal BX: PASHA 2022 Abnormal PAP: LSIL, 2022 SPECIMEN SOURCE A: PAP SMEAR (THIN PREP) CE Patient Name: KARENA ALBERTO : 1995 (Age: 29) Sex: F Institution: [facility] Location: [facility] Date of Collection: 10/17/2024 Date of Reported: 10/23/2024 11:18 Results to: Rey Avelar MD Rey Avelar MD CYTOLOGY ORDERABLES Final Result SEE NARRATIVE from Last 3 Months or Most Recently Relevant to Health Maintenance [place] [address] [place] [address] Care Teams Water Valve Mechanic Relationship Specialty Start Date End Date Macario Ortega MD [address] [place] [address] PCP - General Family Medicine 10/17/24 Additional Source Comments The information contained in this document represents components of the legal health record. It is not the complete legal health record.[facility]
[2025-02-07 11:13] LABS: Appearance Urine Clear; Glucose Urine UA Negative (Negative); PH 6.5 (5.0-9.0); Specific Gravity - Urine <= 1.005 (1.005-1.025)
[2025-02-07 11:38] LABS: Alanine Aminotransferase 29 U/L (0-31); Albumin Level 4.6 g/dL (3.5-5.0); Alkaline Phosphatase 75 U/L (39-117); Anion Gap 10 (12-20); Aspartate Amino Transferase 24 U/L (5-31); Blood Urea Nitrogen 8 mg/dL (9-16); Calcium 9.3 mg/dL (8.4-10.2); Carbon Dioxide 26 mmol/L (22-29); Chloride 105 mmol/L (96-108); Cholesterol 162 mg/dL (<200); Estimated Glomerular Filt Rate > 60; HDL Cholesterol 47 mg/dL (>40); Potassium 4.0 mmol/L (3.3-5.1); Sodium 137 mmol/L (135-145); Total Protein 7.6 g/dL (6.5-8.0); Triglycerides 92 mg/dL (<150)
== END 2025-02-07 08:43 | disposition home or self-care (01) ==
LOC: HO.WFDLDS 08:42
PROVIDERS: Visit Provider Family Medicine
DX: Z00.00 Encounter for general adult medical examination without abnormal findings (principal); E66.9 Obesity, unspecified; E78.00 Pure hypercholesterolemia, unspecified; I10 Essential (primary) hypertension
CPT/HCPCS: 36415; 80053; 80061; 81003; 82570

== ENCOUNTER 2025-02-12 10:26 | Outpatient (AMB) | payer BC, SELFPAY ==
[2025-02-12 10:31] VITALS: BP 128/66; PULSE 65; O2SAT 95; BMI 32.6
--- NOTE | 2025-02-12 10:31 | MHC.PC.OV ---
Vital Signs 02/12/25 10:31 Height 5 ft 6.5 in Weight 205 lb 2 oz BMI 32.6 BP 128/66 Blood Pressure Location Rt brachial Position Sitting Pulse 65 Pulse Source Pulse Oximeter Pulse Oximetry (%) 95 Oxygen Delivery Method Room Air Intake Visit Reasons: f/u liver enzymes Allergies No Known Allergies Allergy (Verified 02/12/25 10:33) Medication List - Last Reconciled 02/12/25 by Macario Ortega MD semaglutide (Ozempic) 0.25 mg (0.368 mL) subcut QWEEK 28 days Tobacco use date assessed: 02/12/25 Dental Screening Dental Screen Date: 02/12/25 Did you have a dental visit in the last 12 months?: Yes Did you have a dental problem in the last 6 months where you did not have access to dental care?: No Was dental information given to patient?: Patient has dentist HPI f/u liver enzymes HPI Details 29 y/o female presents to f/u labs. Labs drawn 02/07/25. Reviewed labs with pt. AST 24, ALT 29. Triglycerides 92. TC 162. LDL 97. HDL 47. Has lost about 16 lbs since last office visit in September. [facility] Medical History Anxiety Family History Paternal Grandfather Diabetes History of open heart surgery Father Mental health disorder Social History Household Members: Friend(s) Housing: House Alcohol intake: current Patient Tobacco Use Status: Never used Tobacco e-Cigarette/Vaping Use: Never Used Substance Use Type: Marijuana Special kan needs: No service: No Current occupational status: employed Current occupation: [employer] Cognitive needs: No Hearing needs: No Vision needs: No Questionnaire PHQ-9 Over the last 2 weeks, how often have you been bothered by any of the following problems? 1. Little interest or pleasure in doing things: not at all 2. Feeling down, depressed, or hopeless: not at all 3. Trouble falling or staying asleep, or sleeping too much: not at all 4. Feeling tired or having little energy: not at all 5. Poor appetite or overeating: not at all 6. Feeling bad about yourself - or that you are a failure or have let yourself or your family down: not at all 7. Trouble concentrating on things, such as reading the newspaper or watching television: not at all 8. Moving or speaking so slowly that other people could have noticed. Or the opposite - being so fidgety or restless that you have been moving around a lot more than usual: not at all 9. Thoughts that you would be better off or of hurting yourself in some way: not at all Total score: 0 Depression Screening Interpretation: Negative Depression Screening Done: Yes Source: Developed by Drs. Eriberto Dumont, Loulou Osman, Aamir Flanagan and colleagues, with an educational nico from [employer]. Thrive Questionnaire Date Thrive assessed: 10/01/24 I am a: Patient What is your living situation today?: I have a steady place to live Within the past 12 months, did the food you bought not last and you didn't have the money to get more?: Never true Within the past 12 months, did you worry whether your food would run out before you got money to buy more?: Never true Do you have trouble paying for medicines?: No Do you have trouble getting transportation to medical appointments?: No Do you have trouble paying your heating and electricity bill?: No Do you have trouble taking care of your child, family member or friend?: No Do you have trouble with day-to-day activities such as bathing, preparing meals, shopping, managing finances, etc.?: No Are you currently unemployed and looking for a job?: No Are you interested in more education?: No Please select the resources that you would like help with: None Currently or been in a relationship where the following occur: No concerns reported THRIVE Score: 0 AUDIT C Alcohol Use Questionnaire (AUDIT-C) 1. How often do you have a drink containing alcohol?: 2-4 times a month 2. How many drinks containing alcohol do you have on a typical day when you are drinking?: 1 or 2 3. How often do you have six or more drinks on one occasion?: Never Total Score: 2 DARNELL-7 AMB Questionnaire DARNELL-7 Date DARNELL - 7 assessed: 10/04/24 Feeling nervous, anxious, or on edge: 0 = Not at all Not being able to stop or control worryin = Not at all Worrying too much about different things: 0 = Not at all Trouble relaxin = Not at all Being so restless that it is hard to sit still: 0 = Not at all Becoming easily annoyed or irritable: 0 = Not at all Feeling afraid as if something awful might happen: 0 = Not at all Total DARNELL-7 score (0-4 normal; 5-9 mild; 10-14 moderate; 15-21 severe): 0 Source: Developed by Drs. Eriberto Dumont, Loulou Osman, Aamir Flanagan and colleagues, with an educational nico from [employer]. Review of Systems Const Denies chills, Denies fatigue, Denies fever(s), Denies headache(s) and Denies weakness ENT Denies dizziness and Denies headache(s) Card Denies dyspnea Resp Denies cough, Denies dyspnea, Denies wheezing and Denies other (shortness of breath) Musc Denies numbness and Denies tingling Neuro Denies dizziness, Denies headache(s), Denies numbness, Denies tingling and Denies weakness Psych Denies anxiety and Denies depression Endo Denies fatigue Aller/Immun Denies wheezing Physical exam (Primary Care) Vital Signs: Last Vital Signs Pulse 65 02/12/25 10:31 BP 128/66 02/12/25 10:31 Pulse Ox 95 02/12/25 10:31 Oxygen Delivery Method Room Air 02/12/25 10:31 BMI result Body Mass Index 32.6 Tobacco/Smoking Status: Tobacco use Status Tobacco use date assessed 02/12/25 02/12/25 10:35 Patient Tobacco Use Status Never used Tobacco 02/12/25 10:35 e-Cigarette/Vaping Use Never Used 02/12/25 10:35 PHQ-9: PHQ-9 Score PHQ-9: Total score 0 02/12/25 10:35 Depression Screening Interpretation: Negative Thrive Assessment: Date of Thrive Assessment Date Thrive assessed 10/01/24 02/12/25 10:35 Currently or been in a relationship where the following occur: No concerns reported Const General: well developed; No acute distress Nutritional Appearance: well nourished Orientation/consciousness: patient oriented x3 HENMT Head: Yes normocephalic and Yes atraumatic Eyes General: appearance normal, both eyes and all related structures Pupils: Equal, round and reactive pupils present EOM: EOMs intact bilaterally Resp Effort & Inspection: normal respiratory effort Neuro General: patient oriented x3 and gait normal Cranial nerves: Yes Equal, round and reactive pupils present Psych Affect: normal affect Coding Level of Care Code Est Pt Level 4 (94176) Diagnoses Elevated liver enzymes R74.8 Obesity E66.9 Elevated LDL cholesterol level E78.00 Assessment & Plan Assessment & Plan (1) Elevated liver enzymes: Code(s): R74.8 - Abnormal levels of other serum enzymes Category: Medical Plan: Patient has lost about 16 lb since September Liver enzymes all within range Continue working on weight loss and good hydration (2) Obesity: Code(s): E66.9 - Obesity, unspecified Category: Medical Plan: As above, patient has lost about 16 lb through diet and exercise. Continue working on lifestyle changes. (3) Elevated LDL cholesterol level: Code(s): E78.00 - Pure hypercholesterolemia, unspecified Category: Medical Plan: LDL cholesterol now in normal range Continue weight control and watch saturated fats and cholesterol diet Orders: Orders UA CC w/rflx Micro + Cult Today Z00.00 - Encounter for general adult medical examination without abnormal findings TSH reflex Free T4 Today Z00.00 - Encounter for general adult medical examination without abnormal findings Comprehensive [place]. Panel Fast Today Z00.00 - Encounter for general adult medical examination without abnormal findings Lipid Panel Today Z00.00 - Encounter for general adult medical examination without abnormal findings Microalbumin, Random (w Creat) Today I10 - Essential (primary) hypertension Medications: Discontinued semaglutide (Ozempic) for 4 weeks Discontinued Reason: Insurance Denied 0.25 mg (0.368 mL) subcut QWEEK 28 days 1.472 mL 3RF E66.9 - Obesity, unspecified
== END 2025-02-12 10:46 | disposition home or self-care (01) ==
LOC: HO.HMCFM 10:29
PROVIDERS: PCP Family Medicine; Visit Provider Family Medicine
DX: R74.8 Abnormal levels of other serum enzymes (principal); E66.9 Obesity, unspecified; Z68.32 Body mass index [BMI] 32.0-32.9, adult; E78.00 Pure hypercholesterolemia, unspecified